=== PATIENT | female | born 1955 | race Asian ===

== ENCOUNTER 2017-05-15 07:46 | Day surgery (SDC) | payer MEDICAID ==
[2017-04-27 10:15] VITALS: BMI 29.6
[2017-05-15] VITALS (15 sets, daily range): BP systolic 130–155; BP diastolic 73–88; PULSE 58–84; RESP 9–19; Ht 165.1 cm; Wt 80.0 kg
[~2017-05-15] VITALS: Ht 165.1 cm; Wt 80.0 kg
[2017-05-15] MEDS ORDERED: ASPI81TA3 PO (08:38)
[2017-05-15] MEDS ORDERED: GLIP5TAB13 PO (08:39)
[2017-05-15] MEDS ORDERED: BENA10TA48 PO (08:39)
[2017-05-15] MEDS ORDERED: MTF1000T PO (08:40)
[2017-05-15] MEDS ORDERED: METO-448 PO (08:42)
[2017-05-15] MEDS ORDERED: SIMV40TA2 PO (08:42)
--- NOTE | 2017-05-15 08:57 | RADRPT ---
PROCEDURE: XR Chest. CLINICAL INDICATION: Preoperative chest examination for right-sided mastectomy . TECHNIQUE: Portable semi-erect. COMPARISON: None. FINDINGS: The cardiomediastinal silhouette is normal. Low lung volumes with lower lobe pulmonary vascular elim ira ding is demonstrated. There is no evidence of a superimposed acute pulmonary process. The osseous st ructures are unremarkable. IMPRESSION: Unremarkable chest examination. RPTAT: [facility]RS[facility] Physician Anthony Date Time Electronically viewed and signed by Page Lance Physician on 05/15/2017 08:56 RR/
[2017-05-15] MEDS ORDERED: SOD CHLORIDE 0.9% 1,000 ML IV ONE (09:00)
[2017-05-15] MEDS ORDERED: CEFAZOLIN 2 GM/50 ML (PMX) 50 ML IVPB ONE (10:30)
[2017-05-15] MEDS ORDERED: MIDAZOLAM 1 MG/ML 2 ML INJ ONE (10:43)
[2017-05-15] MEDS ORDERED: PROPOFOL 20 ML ONE (10:43)
[2017-05-15] MEDS ORDERED: LABETALOL HCL 20MG INJ ONE (10:55)
[2017-05-15] MEDS ORDERED: CEFAZOLIN 1 GM INJ ONE (11:00)
[2017-05-15] MEDS ORDERED: ONDANSETRON 4 MG INJ ONE (11:07)
[2017-05-15] MEDS ORDERED: FAMOTIDINE 20 MG INJ ONE (11:07)
--- NOTE | 2017-05-15 11:25 | SIPON ---
Date/Time of Note Date/Time of Note DATE: 05/15/17 TIME: 11:23 Operative Report Preoperative Diagnosis Large right breast mass biopsy consistent with lymphoma Postoperative Diagnosis Same Operation/Procedure Performed Excision of large right breast mass Surgeon see signature line dental laboratory assistant Dr Grayson Anesthesia: general Estimated blood loss: 10 - 50 ml's Transfusion Required none Specimen Right breast mass Grafts/Implants none Complications none DI WINSLOW MD May 15, 2017 11:25
[2017-05-15] MEDS ORDERED: HYDROCODONE/APAP (7.5/325) TAB PO PRN (11:30)
[2017-05-15] MEDS ORDERED: FENTAnyl 50 MCG/ML VIAL ONE (11:33)
[2017-05-15] MEDS ORDERED: LABETALOL HCL 20MG INJ IV PRN (12:00)
[2017-05-15] MEDS ORDERED: DIPHENHYDRAMINE 50 MG INJ IV PRN (12:00)
[2017-05-15] MEDS ORDERED: PROCHLORPERAZINE 10 MG INJ IV PRN (12:00)
[2017-05-15] MEDS ORDERED: MEPERIDINE 25 MG INJ IV PRN (12:00)
[2017-05-15] MEDS ORDERED: HYDROmorphONE (0.2 MG/ML) 10ML SYG IV PRN (12:00)
[2017-05-15] MEDS ORDERED: hydrALAzine 20 MG INJ IV PRN (12:00)
[2017-05-15] MEDS: METOCLOPRAMIDE 10 MG INJ IV PRN ×2 (12:53→13:32)
--- NOTE | 2017-05-15 14:14 | OPR ---
DATE OF OPERATION: 05/15/2017 PREOPERATIVE DIAGNOSIS: Large right breast mass. Core biopsy consistent with lymphoma. POSTOPERATIVE DIAGNOSIS: Large right breast mass. Core biopsy consistent with lymphoma. OPERATION PERFORMED: Excision of large right breast mass. ANESTHESIA: General. ANESTHESIOLOGIST: Dr. Quinn. SURGEON: Lawrence Ron MD LEAD TECHNOLOGIST IN CYTOGENETICS: Dr. Grayson. INDICATIONS FOR PROCEDURE: The patient is a 61-year-old female who presented with a very large firm right breast mass. Workup including biopsy revealed lymphoma. Full surgical excision was recommen ded. Patient consented and was scheduled for surgery. DESCRIPTION OF PROCEDURE: The patient was brought to the operating theater, placed under general an esthesia. The right breast was prepped and draped in usual sterile fashion. A large mass which was at least 8 cm was in the upper inner quadrant. A curvilinear excision was made directly over the m ass. Subcutaneous tissue was dissected with cautery. Wide circumferential dissection of the mass t ook place, taking care to ensure adequate margin. Dissection took place down to the pectoralis demetri r fascia and the mass was then elevated and transected, oriented, and sent for fresh analysis by the pathologist. The wound was irrigated. Minimal bleeding was controlled with cautery. There was a very large defect, Dr. Ron made the decision that it would be prudent to place a drain within the defect. A drain was brought through the right mid axillary line into the wound, cut to size and alonso d within the wound. It was secured in place with 2-0 nylon suture in the standard fashion. The ski n was then reapproximated with 4-0 Vicryl suture in subcuticular fashion, and benzoin and Steri-Stri ps were applied. Patient tolerated the procedure well. The estimated blood loss was approximately 20 mL. There were no complications and the patient was transported in stable [facility]. Dictated By: LAWRENCE FERNÁNDEZ/JAQUI Conf#: [id number] DID#: [id number]
--- NOTE | 2017-05-16 15:03 | RADRPT ---
Vent Rate: 60 bpm RR Interval: 0 msec NE Interval: 128 msec QRS Duration: 80 msec QT Interval: 432 msec QTC Interval: 432 msec P-R-T [place]: 41 - 5 - 17 degrees Normal sinus rhythm Normal ECG No previous tracing available for comparison Electronically Signed By: Drew Ashraf [id number]
== END 2017-05-15 16:00 | disposition home or self-care (01) ==
LOC: SDS 07:46
PROVIDERS: ATTEND Surgery Surgical Oncology
DX: C50.911 Malignant neoplasm of unspecified site of right female breast (principal); I10 Essential (primary) hypertension
CPT/HCPCS: 19120; 71010; 82962; 88307; 88313; 93005; J0690; J1170; J2250; J2405; J2765; J3010; Z7512; Z7610

== ENCOUNTER 2017-09-04 06:16 | Day surgery (SDC) | END 2017-09-04 12:15 | disposition home or self-care (01) ==

== ENCOUNTER 2017-10-15 06:49 | Day surgery (SDC) | END 2017-10-15 14:23 | disposition home or self-care (01) ==

== ENCOUNTER 2018-04-27 18:22 | Observation (INO) | END 2018-04-28 16:49 | disposition home or self-care (01) ==